=== PATIENT | female | born 1985 | race African-American/Black ===

== ENCOUNTER 2022-03-27 20:20 | Emergency (ER) | payer OTHER, SELFPAY ==
[2022-03-27 21:10] VITALS: BP 117/75; PULSE 82; RESP 18; TEMP 35.7; O2SAT 99; BMI 26.4
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
[2022-03-28] MEDS: Ibuprofen 600 MG TABLET PO (01:00)
== END 2022-03-28 01:12 | disposition home or self-care (01) ==
PROVIDERS: Emergency Provider Internal Medicine
DX: S16.1XXA Strain of muscle, fascia and tendon at neck level, initial encounter (principal); V43.52XA Car driver injured in collision with other type car in traffic accident, initial encounter; Y93.89 Activity, other specified; Y92.414 Local residential or business street as the place of occurrence of the external cause; Y99.8 Other external cause status
CPT/HCPCS: 99283; 99284